=== PATIENT | male | born 1995 | race African-American/Black ===

== ENCOUNTER 2022-08-04 10:58 | Emergency (ER) | payer SELFPAY ==
[2022-08-04 11:01] VITALS: BP 127/82; PULSE 73; RESP 18; TEMP 36.6; O2SAT 99; BMI 25.0
[2022-08-04] MEDS: ondansetron 2 mg/ML SDV 2 mL 4 MG IVP (11:37)
[2022-08-04] MEDS: sodium chloride 0.9% 1,000 ML 999 ML IV (11:37)
[2022-08-04 11:39] LABS: Basophils % 0.4 %; Eosinophils # 0.2 10^3/uL (0.0-0.8); Eosinophils % 2.3 %; Hematocrit 47.1 % (42.0-52.0); Hemoglobin 16.8 g/dL (11.7-16.6); Lymphocytes # 2.5 10^3/uL (0.8-4.8); Lymphocytes % 35.8 %; Mean Corpuscular HGB Conc 35.7 g/dL (30.0-36.0); Mean Corpuscular Hemoglobin 31.8 pg (28.0-34.0); Mean Corpuscular Volume 89.2 fl (80-94); Mean Platelet Volume 10.5 fL (7.4-10.4); Monocytes # 0.4 10^3/uL (0.2-0.9); Monocytes % 6.1 %; Neutrophils # 3.86 10^3/uL (1.8-7.7); Neutrophils % 55.1 %; Nucleated Red Blood Cells % 0 %; Platelet Count 247 10^3/cmm (130-400); Red Blood Count 5.28 10^6/uL (4.1-5.3); Red Cell Distribution Width 11.6 % (12.1-15.1)
--- NOTE | 2022-08-04 11:44 | W.ED.GIBLEED ---
HPI - GI Bleed General: Chief complaint: GI Bleed Stated complaint: n/v/passing blood Time Seen by Provider: 08/04/22 11:08 History of Present Illness: Patient is a 27-year-old male who comes to the ED with nausea and vomiting. Symptoms started approximately 2 days ago. He has had multiple episodes of emesis over the past couple days and has not been able to keep food down. He has been able to keep some p.o. fluids down. This morning he had an episode of emesis which contained a little bit of red blood in it. His stomach feels upset and nauseous, but he also reports some pain in his lower back bilaterally along with some abdominal pain. Abdominal pain is kind and generalized throughout the central part of abdomen. He rates his abdominal pain a 5 out of 10. Denies any fevers, chills, upper respiratory symptoms, dysuria or hematuria. Denies any constipation or diarrhea. Associated symptoms: Reports abdominal pain, nausea and vomiting; Denies chills, fever(s), headache(s) or rash Review of Systems Const: Denies: fever(s), chills or fatigue Eyes: Denies: change in vision or eye discomfort ENMT: Denies: throat pain, odynophagia, nasal discharge or nasal congestion Card: Denies: chest pain, palpitations, edema, swelling of feet/ankles, dyspnea on exertion or orthopnea Resp: Denies: dyspnea, productive cough or non-productive cough GI: Reports: abdominal pain, nausea, vomiting and hematemesis; Denies: diarrhea, constipation or hematochezia : Denies: flank pain, difficulty urinating, dysuria or hematuria Musc: Denies: neck pain, back pain or extremity swelling Skin/Breast: Denies: rash or new lesions Neuro: Denies: headache(s), numbness in extremities or weakness in extremities PFS ED PFSH: Medical History (Updated 08/05/22 @ 07:23 by IGLESIA Nolasco) No pertinent family history Surgical History (Updated 08/05/22 @ 07:23 by IGLESIA Nolasco) No pertinent past surgical history Physical Exam Const: COMMON NORMALS: patient oriented x3 and alert GENERAL APPEARANCE: cooperative and comfortable HENMT: COMMON NORMALS: normocephalic HEAD & SCALP: normocephalic MOUTH: Normal oral and palatal mucosa present THROAT: posterior oropharynx normal and uvula midline Neck/C-Spine: COMMON NORMALS: supple GENERAL: Yes normal visual inspection Resp: COMMON NORMALS: normal respiratory effort, No retractions, No use of accessory muscles and clear to auscultation bilaterally AUSCULTATION: clear to auscultation bilaterally Cardio: COMMON NORMALS: regular rate, regular rhythm, S1 normal heart sound present, S2 normal heart sound present, No gallops present (Cardio), No clicks present (Cardio), No murmurs present (Cardio) and Peripheral pulses 2+ throughout RATE: regular rate RHYTHM: regular rhythm HEART SOUNDS: S1 normal heart sound present and S2 normal heart sound present PERIPHERAL PULSES: Peripheral pulses 2+ throughout GI: COMMON NORMALS: Normal to inspection, nondistended, normoactive bowel sounds present, Soft to palpation and no masses PALPATION: Yes Soft to palpation and Yes Tenderness to palpation present (GI) (Generalized central abdominal and periumbilical tenderness) : COMMON NORMALS: Yes no CVA tenderness BLADDER/KIDNEY EXAM: Yes no CVA tenderness Back/Pelvis: COMMON NORMALS: no CVA tenderness Extremity: COMMON NORMALS: normal to inspection Neuro: COMMON NORMALS: patient oriented x3 SENSORIUM/ORIENTATION: Yes alert GAIT: Yes Normal gait present Skin: GENERAL SKIN EXAM: dry skin Course Vital Signs: Vital signs: Vital Signs Temperature 97.6 F 08/04/22 13:47 Pulse Rate 67 08/04/22 13:47 Respiratory Rate 13 08/04/22 13:47 Blood Pressure 106/68 08/04/22 13:47 Pulse Oximetry 97 08/04/22 13:47 Oxygen Delivery Me thod 08/04/22 13:47 MDM - GI Bleed Medical Decision Making Patient is a 27-year-old male who comes to the ED with nausea and vomiting. Symptoms started approximately 2 days ago. He has had multiple episodes of emesis over the past couple days and has not been able to keep food down. He has been able to keep some p.o. fluids down. This morning he had an episode of emesis which contained a little bit of red blood in it. His stomach feels upset and nauseous, but he also reports some pain in his lower back bilaterally along with some abdominal pain. Abdominal pain is kind and generalized throughout the central part of abdomen. He rates his abdominal pain a 5 out of 10. Denies any fevers, chills, upper respiratory symptoms, dysuria or hematuria. Vital stable. Patient has some mild central abdominal and periumbilical tenderness but the rest of exam is benign. He appears nontoxic in no acute distress. Labs are unremarkable. CT of abdomen pelvis shows no acute findings. Patient symptoms likely due to viral gastroenteritis. He was given IV fluids and Zofran here in the ED and his symptoms improved and he is able to keep p.o. fluids down. He was stable for discharge home and sent home with a prescription for Zofran. Patient does not have a primary care physician so I placed an order with case management for patient to be referred to a PCP for follow-up. Return to ED precautions given. Patient understood and agreed with plan. Lab Data I reviewed the patient's lab results. 08/04/22 11:29 08/04/22 11:29 Radiology Impressions Abdomen/Pelvis CT 08/04/22 11:48 IMPRESSION: 1. No acute abdominal or pelvic abnormalities on this unenhanced study. 2. No GI tract obstruction. Normal appendix. Laboratory Results WBC 7.0 10^3/uL (4.0-10.0) 08/04/22 11: RBC 5.28 10^6/uL (4.1-5.3) 08/04/22 11:29 Hgb 16.8 g/dL (11.7-16.6) H 08/04/22 11:29 Hct 47.1 % (42.0-52.0) 08/04/22 11: MCV 89.2 fl (80-94) 08/04/22 11: MCH 31.8 pg (28.0-34.0) 08/04/22 11:29 MCHC 35.7 g/dL (30.0-36.0) 08/04/22 11: RDW 11.6 % (12.1-15.1) L 08/04/22 11:29 Plt Count 247 10^3/cmm (130-400) 08/04/22 11: MPV 10.5 fL (7.4-10.4) H 08/04/22 11: Neut % (Auto) 55.1 % 08/04/22 11: Lymph % (Auto) 35.8 % 08/04/22 11:29 [place] % (Auto) 6.1 % 08/04/22 11:29 Eos % (Auto) 2.3 % 08/04/22 11:29 Baso % (Auto) 0.4 % 08/04/22 11:29 Neut # (Auto) 3.86 10^3/uL (1.8-7.7) 08/04/22 11:29 Lymph # (Auto) 2.5 10^3/uL (0.8-4.8) 08/04/22 11:29 [place] # (Auto) 0.4 10^3/uL (0.2-0.9) 08/04/22 11:29 Eos # (Auto) 0.2 10^3/uL (0.0-0.8) 08/04/22 11:29 Baso # (Auto) 0.0 10^3/uL (0.0-0.1) 08/04/22 11:29 Nucleated RBC % (auto) 0 % 08/04/22 11:29 Nucleated RBCs # 0.0 /100WBC 08/04/22 11:29 Sodium 138 mmol/L (136-145) 08/04/22 11:29 Potassium 3.7 mmol/L (3.5-5.1) 08/04/22 11:29 Chloride 101 mmol/L (98-107) 08/04/22 11:29 Carbon Dioxide 26 mmol/L (22-29) 08/04/22 11:29 Anion Gap 14.7 (5-19) 08/04/22 11:29 BUN 11 mg/dL (6-20) 08/04/22 11:29 Creatinine 1.0 mg/dL (0.7-1.2) 08/04/22 11:29 GFR Calculation 90.3 mL/min (90-130) 08/04/22 11:29 Glucose 95 mg/dL (65-115) 08/04/22 11:29 Calculated Osmolality 285 mOsm/kg (285-295) 08/04/22 11:29 Calcium 9.1 mg/dL (8.5-10.5) 08/04/22 11:29 Total Bilirubin 0.7 mg/dL (0.15-1.2) 08/04/22 11: AST 16 U/L (0-40) 08/04/22 11:29 ALT 24 U/L (0-41) 08/04/22 11:29 Alkaline Phosphatase 80 U/L (40-130) 08/04/22 11:29 Total Protein 7.7 g/dL (6.6-8.7) 08/04/22 11:29 Albumin 4.6 g/dL (3.5-5.2) 08/04/22 11:29 Globulin 3.1 g/dL (1.3-4.6) 08/04/22 11:29 Lipase 62 U/L (13-60) H 08/04/22 11:29 Urine Color Yellow (Yellow) 08/04/22 11:50 Urine Appearance Clear (CLEAR) 08/04/22 11:50 Urine pH 5 (5-7) 08/04/22 11:50 Ur Specific [place] 1.025 (1.005-1.030) 08/04/22 11:50 Urine Protein Trace (Negative) 08/04/22 11:50 Urine Glucose (UA) Norm (Normal) 08/04/22 11:50 Urine Ketones 1+ (Negative) H 08/04/22 11:50 Urine Blood Neg (Negative) 08/04/22 11:50 Urine Nitrate Negative (Negative) 08/04/22 11:50 Urine Bilirubin Neg (Negative) 08/04/22 11:50 Urine Urobilinogen Neg mg/dL (Negative) 08/04/22 11:50 Ur Leukocyte Esterase Negative (Negative) 08/04/22 11:50 Urine RBC None /hpf (0-2) 08/04/22 11:50 Urine WBC None /hpf (0-5) 08/04/22 11:50 Ur Squamous Epith Cells 0-4 /hpf (0-5) H 08/04/22 11:50 Amorphous Sediment Not Reportable 08/04/22 11:50 Urine Bacteria None /hpf (NONE) 08/04/22 11:50 Urine Mucus 2+ /hpf 08/04/22 11:50 Discharge Plan Discharge Patient Disposition: Home Clinical Impression: Viral gastroenteritis Condition: Stable Prescriptions: New ondansetron 4 mg tablet,disintegrating 4 mg PO Q8H PRN (Reason: nausea and vomiting) Qty: 15 0RF Discharge Orders: Discharge ED (Routine); Ordered 08/04/22 Ordered By: Blaise Cali Discharge Diet: Advance as tolerated and Clear Liquid Discharge Activity: Increase activity as tolerated Activity Restrictions/Additional Instructions: Follow-up with medical provider as directed. Case management should contact you in the next several days to set up an appointment with a primary care physician for follow-up. Take medications as prescribed. Drink plenty fluids and stay hydrated. Return to the ER or your medical provider if condition worsens. Please read and understand discharge instructions. Thank you for choosing [facility] for your healthcare needs today. Please realize this is an emergency room and that we are providing you with a medical screening exam and this may not be complete and all inclusive of all the testing and or work up that you may need to determine your ailment or severity of your illness. It is very important that you follow up as instructed or that you return to the Emergency Department should you have concerns or if your condition changes or worsens in any way. Stand Alone Forms: Work/School Release Coding Level of Care Code ED Rehab Director Occupational Therapist for Hilario Fwmarlys Exam Comprehensive
--- NOTE | 2022-08-04 11:48 | CT_ITS ---
WS: [id number] CT ABDOMEN AND PELVIS NONCONTRAST HISTORY: abdominal pain, n/v, red blood in vomit TECHNIQUE: Imaging performed through the abdomen and pelvis. Coronal and sagittal reformats are submi tted. All CT scans at [facility] use at least one of these dose optimization techniques: auto mated exposure control; mA and/or kV adjustment per patient size (includes targeted exams where dose is matched to clinical indication); or iterative reconstruction. DLP: 480.38 mGy.cm COMPARISON: None available. Lower thorax: Lung bases are clear. Visualized heart is normal. No hiatal hernia. Liver: Normal size liver. No mass or bile duct dilatation. Gallbladder: Normal gallbladder. Pancreas: Normal size and attenuation. Normal pancreatic duct. No pancreatitis or mass. Spleen: Normal. Adrenal glands: Normal. No mass. Right kidney: Normal size kidney with no mass or hydronephrosis. Left kidney: Normal size kidney with no mass or hydronephrosis. Aorta: Normal abdominal aorta, no aneurysm or atherosclerosis. No free fluid, intraperitoneal air or significant lymphadenopathy. GI tract: Minimally distended stomach. No mixed density within the stomach to suggest acute blood pro ducts. No small bowel obstruction or colon obstruction. Normal appendix. Abdominal wall: Negative. No hernia. Pelvis: Normal. Osseous structures: Bilateral pars defects at L5. CT/CT abdomen pelvis wo con [id number] IMPRESSION: 1. No acute abdominal or pelvic abnormalities on this unenhanced study. 2. No GI tract obstruction. Normal appendix.
[2022-08-04 11:59] LABS: Alanine Aminotransferase 24 U/L (0-41); Albumin Level 4.6 g/dL (3.5-5.2); Alkaline Phosphatase 80 U/L (40-130); Anion Gap 14.7 (5-19); Aspartate Amino Transferase 16 U/L (0-40); Blood Urea Nitrogen 11 mg/dL (6-20); Calcium 9.1 mg/dL (8.5-10.5); Carbon Dioxide 26 mmol/L (22-29); Chloride 101 mmol/L (98-107); Globulin 3.1 g/dL (1.3-4.6); Glomerular Filtration Rate 90.3 mL/min (90-130); Glucose 95 mg/dL (65-115); Lipase 62 U/L (13-60); Osmolality Calculated 285 mOsm/kg (285-295); Potassium 3.7 mmol/L (3.5-5.1); Sodium 138 mmol/L (136-145); Total Bilirubin 0.7 mg/dL (0.15-1.2); Total Protein 7.7 g/dL (6.6-8.7)
[2022-08-04 12:20] LABS: Glucose Urine UA Norm (Normal); Protein Urine Trace (Negative); Specific Gravity, Urine 1.025 (1.005-1.030); Urine Appearance Clear (CLEAR); Urine Color Yellow (Yellow); pH Urine 5 (5-7)
[2022-08-04 12:21] LABS: Add Urine Microscopic? YES; Bilirubin Urine Neg (Negative); Blood Urine Neg (Negative); Ketones Urine 1+ (Negative); Leukocyte Esterase Urine Negative (Negative); Nitrate Urine Negative (Negative); Urobilinogen Urine Neg (Negative)
[2022-08-04 12:32] LABS: Mucus Urine 2+ /hpf; Squamous Epithelial Cell Urine 0-4 /hpf (0-5)
[2022-08-04 13:47] VITALS: BP 106/68; PULSE 67; RESP 13; TEMP 36.4; O2SAT 97
--- NOTE | 2022-08-10 11:04 | DCPLANNER ---
manager of photography had message to speak with patient about getting established with a primary care physician. manager of photography unable to speak with patient at this time.
== END 2022-08-04 13:43 | disposition home or self-care (01) ==
PROVIDERS: Emergency Provider Physician Assistant
DX: A08.4 Viral intestinal infection, unspecified (principal)
CPT/HCPCS: 74176; 80053; 81001; 83690; 85025; 96374; 99285; J2405; J7030

== ENCOUNTER → 2023-02-06 12:57 | Outpatient (BNVA) | payer SELFPAY | PROVIDERS: Visit Provider Nurse Practitioner Family | DX: R51.9 Headache, unspecified (principal) | CPT/HCPCS: 87426 ==

== ENCOUNTER 2023-02-11 18:20 | Emergency (ER) | payer SELFPAY ==
[2023-02-11 18:47] VITALS: BP 100/68; PULSE 87; RESP 14; TEMP 37.2; O2SAT 97; BMI 23.0
--- NOTE | 2023-02-11 20:45 | W.ED.HA ---
Documented by User: UDAY Stewart 02/11/23 21:48 HPI - Headache General: Chief Complaint: Headache Stated Complaint: vomiting Time Seen by Provider: 02/11/23 20:44 History of Present Illness: 27-year-old male patient comes in today for complaints of headache. Patient reports headaches on and off for the last 2 months, and occasional episodes of nausea and vomiting with blood in it. Patient was seen on the in the clinic and was given a dose of Toradol. Today patient had nausea with a headache and vomited once noticing some blood. Patient appears nontoxic. Patient appears in mild pain. Patient has a history of mood disorder and prior emesis with blood. Associated symptoms: Reports vomiting; Deny chest pain, fever(s) or rash Review of Systems Const: Denies: fever(s) Card: Denies: chest pain Resp: Denies: dyspnea GI: Reports: vomiting and other (Blood in vomit) : Denies: flank pain Skin/Breast: Denies: rash Neuro: Reports: headache(s) PFS ED PFSH: Medical History (Updated 02/11/23 @ 21:45 by UDAY Stewart) No pertinent family history Surgical History (Updated 08/05/22 @ 07:23 by IGLESIA Nolasco) No pertinent past surgical history Physical Exam Const: COMMON NORMALS: alert HENMT: COMMON NORMALS: atraumatic HEAD & SCALP: atraumatic MOUTH: Normal oral and palatal mucosa present Neck/C-Spine: COMMON NORMALS: full ROM Resp: COMMON NORMALS: normal respiratory effort and clear to auscultation bilaterally AUSCULTATION: clear to auscultation bilaterally Cardio: COMMON NORMALS: regular rate and regular rhythm RATE: regular rate RHYTHM: regular rhythm GI: COMMON NORMALS: non-tender Back/Pelvis: COMMON NORMALS: thoracic and lumbar spine normal to inspection Extremity: COMMON NORMALS: normal to inspection Neuro: SENSORIUM/ORIENTATION: Yes alert Skin: COMMON NORMALS: turgor normal GENERAL SKIN EXAM: turgor normal Course Vital Signs: Vital signs: Vital Signs Temperature 99.0 F 02/11/23 18:47 Pulse Rate 86 02/11/23 22:08 Respiratory Rate 16 02/11/23 22:08 Blood Pressure 94/56 02/11/23 22:08 Pulse Oximetry 96 02/11/23 22:08 Oxygen Delivery Me thod Room Air 02/11/23 21:19 MDM - Headache Medical Decision Making 27-year-old male patient comes in today with complaints of headache and then emesis with blood in it. Patient also expressed concern about blood sugar and numbness in his fingers and feet bilaterally. Patient appears nontoxic. Patient appears in no pain. Respirations are even lungs are clear to auscultation. Patient was given Toradol in the doctor's office on 06 February for his headache and reported some improvement of the headache since then but continues to report a headache today. Vital signs are normal. Differential diagnosis includes but not limited to recurrent migraine, anemia, anxiety about health, diabetes, tarsal tunnel syndrome, carpal tunnel syndrome, planter fasciitis, mood disorder. CBC and CMP were unremarkable. Patient was treated for his headache with 15 mg ketorolac and 10 mg of Reglan with of headache. Recommended pantoprazole 20 mg daily due to emesis and blood in emesis for suspicion of gastritis. Case management was requested to have patient follow-up with surgeon for further evaluation with EGD. Patient reported understanding of care plan and need for follow-up or return to the ER. Lab Data 02/11/23 21:05 02/11/23 21:05 Laboratory Results WBC 9.5 10^3/uL (4.0-10.0) 02/11/23 21:05 RBC 4.82 10^6/uL (4.1-5.3) 02/11/23 21:05 Hgb 15.4 g/dL (11.7-16.6) 02/11/23 21:05 Hct 45.8 % (42.0-52.0) 02/11/23 21:05 MCV 95.0 fl (80-94) H 02/11/23 21:05 MCH 32.0 pg (28.0-34.0) 02/11/23 21:05 MCHC 33.6 g/dL (30.0-36.0) 02/11/23 21:05 RDW 12.2 % (12.1-15.1) 02/11/23 21:05 Plt Count 223 10^3/cmm (130-400) 02/11/23 21:05 MPV 10.3 fL (7.4-10.4) 02/11/23 21:05 Neut % (Auto) 63.4 % 02/11/23 21:05 Lymph % (Auto) 27.4 % 02/11/23 21:05 [place] % (Auto) 6.8 % 02/11/23 21:05 Eos % (Auto) 1.5 % 02/11/23 21:05 Baso % (Auto) 0.6 % 02/11/23 21:05 Neut # (Auto) 6.01 10^3/uL (1.8-7.7) 02/11/23 21:05 Lymph # (Auto) 2.6 10^3/uL (0.8-4.8) 02/11/23 21:05 [place] # (Auto) 0.6 10^3/uL (0.2-0.9) 02/11/23 21:05 Eos # (Auto) 0.1 10^3/uL (0.0-0.8) 02/11/23 21:05 Baso # (Auto) 0.1 10^3/uL (0.0-0.1) 02/11/23 21:05 Nucleated RBC % (auto) 0 % 02/11/23 21:05 Nucleated RBCs # 0.0 /100WBC 02/11/23 21:05 Sodium 142 mmol/L (136-145) 02/11/23 21:05 Potassium 4.2 mmol/L (3.5-5.1) 02/11/23 21:05 Chloride 103 mmol/L (98-107) 02/11/23 21:05 Carbon Dioxide 27 mmol/L (22-29) 02/11/23 21:05 Anion Gap 16.2 (5-19) 02/11/23 21:05 BUN 7 mg/dL (6-20) 02/11/23 21:05 Creatinine 1.1 mg/dL (0.7-1.2) 02/11/23 21:05 GFR Calculation 80.9 mL/min (90-130) L 02/11/23 21:05 Glucose 77 mg/dL (65-115) 02/11/23 21:05 Calculated Osmolality 291 mOsm/kg (285-295) 02/11/23 21:05 Calcium 8.9 mg/dL (8.5-10.5) 02/11/23 21:05 Total Bilirubin 0.5 mg/dL (0.15-1.2) 02/11/23 21:05 AST 16 U/L (0-40) 02/11/23 21:05 ALT 15 U/L (0-41) 02/11/23 21:05 Alkaline Phosphatase 59 U/L (40-130) 02/11/23 21:05 Total Protein 6.9 g/dL (6.6-8.7) 02/11/23 21:05 Albumin 4.3 g/dL (3.5-5.2) 02/11/23 21:05 Globulin 2.6 g/dL (1.3-4.6) 02/11/23 21:05 Discharge Plan Discharge Patient Disposition: Home Clinical Impression: Gastritis Qualifiers: Gastritis type: unspecified gastritis Chronicity: unspecified Gastritis bleeding: presence of bleeding unspecified Qualified Code(s): K29.70 - Gastritis, unspecified, without bleeding Migraine Qualifiers: Migraine type: unspecified Status migrainosus presence: without status migrainosus Intractability: not intractable Qualified Code(s): G43.909 - Migraine, unspecified, not intractable, without status migrainosus Condition: Stable Prescriptions: New pantoprazole 20 mg tablet,delayed release (DR/EC) 20 mg PO DAILY Qty: 14 0RF No Action ondansetron HCl 4 mg tablet 4 mg PO Q8H PRN (Reason: nausea and vomiting) Qty: 10 0RF Discharge Orders: Discharge ED (Routine); Ordered 02/11/23 Ordered By: Elijah Shepherd Discharge Diet: Usual diet Discharge Activity: Increase activity as tolerated Patient Instructions: Gastritis (ED), Migraine Headache (ED) Activity Restrictions/Additional Instructions: Drink plenty of water. Use acetaminophen as needed for headache or pain. Avoid ibuprofen or naproxen as this may irritate the stomach lining and increased bleeding. Take pantoprazole 20 mg daily for the next 2 weeks for concern of irritation of the stomach lining. Case management will contact you regarding follow-up appointment with surgeon for further evaluation of blood in vomit and possible endoscopy procedure to look at the stomach lining and esophagus. Follow-up with primary care about prophylaxis treatment for migraine headaches. Return to ER for new concerns. Stand Alone Forms: Work/School Release Coding Level of Care Code ED Forming Machine Tender for Chg Fwd Documented by User: Joseph Blaise Joey, DO 02/11/23 22:15 HPI - Headache General: Chief Complaint: Headache Stated Complaint: vomiting Time Seen by Provider: 02/11/23 20:44 PFSH ED PFSH: Medical History (Updated 02/11/23 @ 21:45 by UDAY Stewart) No pertinent family history Surgical History (Updated 08/05/22 @ 07:23 by IGLESIA Nolasco) No pertinent past surgical history Course Vital Signs: Vital signs: Vital Signs Temperature 99.0 F 02/11/23 18:47 Pulse Rate 86 02/11/23 22:08 Respiratory Rate 16 02/11/23 22:08 Blood Pressure 94/56 02/11/23 22:08 Pulse Oximetry 96 02/11/23 22:08 Oxygen Delivery Me thod Room Air 02/11/23 21:19 MDM - Headache Medical Decision Making 27-year-old male patient comes in today with complaints of headache and then emesis with blood in it. Patient also expressed concern about blood sugar and numbness in his fingers and feet bilaterally. Patient appears nontoxic. Patient appears in no pain. Respirations are even lungs are clear to auscultation. Patient was given Toradol in the doctor's office on 06 February for his headache and reported some improvement of the headache since then but continues to report a headache today. Vital signs are normal. Differential diagnosis includes but not limited to recurrent migraine, anemia, anxiety about health, diabetes, tarsal tunnel syndrome, carpal tunnel syndrome, planter fasciitis, mood disorder. CBC and CMP were unremarkable. Patient was treated for his headache with 15 mg ketorolac and 10 mg of Reglan with of headache. Recommended pantoprazole 20 mg daily due to emesis and blood in emesis for suspicion of gastritis. Case management was requested to have patient follow-up with surgeon for further evaluation with EGD. Patient reported understanding of care plan and need for follow-up or return to the ER. This patient was originally seen by UDAY Shah.? I agree with his history, evaluation, and treatment. Lab Data 02/11/23 21:05 02/11/23 21:05 Laboratory Results WBC 9.5 10^3/uL (4.0-10.0) 02/11/23 21:05 RBC 4.82 10^6/uL (4.1-5.3) 02/11/23 21:05 Hgb 15.4 g/dL (11.7-16.6) 02/11/23 21:05 Hct 45.8 % (42.0-52.0) 02/11/23 21:05 MCV 95.0 fl (80-94) H 02/11/23 21:05 MCH 32.0 pg (28.0-34.0) 02/11/23 21:05 MCHC 33.6 g/dL (30.0-36.0) 02/11/23 21:05 RDW 12.2 % (12.1-15.1) 02/11/23 21:05 Plt Count 223 10^3/cmm (130-400) 02/11/23 21:05 MPV 10.3 fL (7.4-10.4) 02/11/23 21:05 Neut % (Auto) 63.4 % 02/11/23 21:05 Lymph % (Auto) 27.4 % 02/11/23 21:05 [place] % (Auto) 6.8 % 02/11/23 21:05 Eos % (Auto) 1.5 % 02/11/23 21:05 Baso % (Auto) 0.6 % 02/11/23 21:05 Neut # (Auto) 6.01 10^3/uL (1.8-7.7) 02/11/23 21:05 Lymph # (Auto) 2.6 10^3/uL (0.8-4.8) 02/11/23 21:05 [place] # (Auto) 0.6 10^3/uL (0.2-0.9) 02/11/23 21:05 Eos # (Auto) 0.1 10^3/uL (0.0-0.8) 02/11/23 21:05 Baso # (Auto) 0.1 10^3/uL (0.0-0.1) 02/11/23 21:05 Nucleated RBC % (auto) 0 % 02/11/23 21:05 Nucleated RBCs # 0.0 /100WBC 02/11/23 21:05 Sodium 142 mmol/L (136-145) 02/11/23 21:05 Potassium 4.2 mmol/L (3.5-5.1) 02/11/23 21:05 Chloride 103 mmol/L (98-107) 02/11/23 21:05 Carbon Dioxide 27 mmol/L (22-29) 02/11/23 21:05 Anion Gap 16.2 (5-19) 02/11/23 21:05 BUN 7 mg/dL (6-20) 02/11/23 21:05 Creatinine 1.1 mg/dL (0.7-1.2) 02/11/23 21:05 GFR Calculation 80.9 mL/min (90-130) L 02/11/23 21:05 Glucose 77 mg/dL (65-115) 02/11/23 21:05 Calculated Osmolality 291 mOsm/kg (285-295) 02/11/23 21:05 Calcium 8.9 mg/dL (8.5-10.5) 02/11/23 21:05 Total Bilirubin 0.5 mg/dL (0.15-1.2) 02/11/23 21:05 AST 16 U/L (0-40) 02/11/23 21:05 ALT 15 U/L (0-41) 02/11/23 21:05 Alkaline Phosphatase 59 U/L (40-130) 02/11/23 21:05 Total Protein 6.9 g/dL (6.6-8.7) 02/11/23 21:05 Albumin 4.3 g/dL (3.5-5.2) 02/11/23 21:05 Globulin 2.6 g/dL (1.3-4.6) 02/11/23 21:05 Discharge Plan Discharge Patient Disposition: Home Clinical Impression: Gastritis Qualifiers: Gastritis type: unspecified gastritis Chronicity: unspecified Gastritis bleeding: presence of bleeding unspecified Qualified Code(s): K29.70 - Gastritis, unspecified, without bleeding Migraine Qualifiers: Migraine type: unspecified Status migrainosus presence: without status migrainosus Intractability: not intractable Qualified Code(s): G43.909 - Migraine, unspecified, not intractable, without status migrainosus Condition: Stable Prescriptions: New pantoprazole 20 mg tablet,delayed release (DR/EC) 20 mg PO DAILY Qty: 14 0RF No Action ondansetron HCl 4 mg tablet 4 mg PO Q8H PRN (Reason: nausea and vomiting) Qty: 10 0RF Discharge Orders: Discharge ED (Routine); Ordered 02/11/23 Ordered By: Elijah Shepherd Discharge Diet: Usual diet Discharge Activity: Increase activity as tolerated Patient Instructions: Gastritis (ED), Migraine Headache (ED) Activity Restrictions/Additional Instructions: Drink plenty of water. Use acetaminophen as needed for headache or pain. Avoid ibuprofen or naproxen as this may irritate the stomach lining and increased bleeding. Take pantoprazole 20 mg daily for the next 2 weeks for concern of irritation of the stomach lining. Case management will contact you regarding follow-up appointment with surgeon for further evaluation of blood in vomit and possible endoscopy procedure to look at the stomach lining and esophagus. Follow-up with primary care about prophylaxis treatment for migraine headaches. Return to ER for new concerns. Stand Alone Forms: Work/School Release Coding Level of Care Code ED Forming Machine Tender for Hilario Velasquez
[2023-02-11 21:19] VITALS: BP 107/67; PULSE 65; RESP 16; O2SAT 97
[2023-02-11] MEDS: metoclopramide 5 mg/mL SDV 2 mL 10 MG IVP (21:26)
[2023-02-11] MEDS: ketorolac 30 mg/mL INJ 15 MG IVP (21:27)
[2023-02-11 21:30] LABS: Alanine Aminotransferase 15 U/L (0-41); Albumin Level 4.3 g/dL (3.5-5.2); Alkaline Phosphatase 59 U/L (40-130); Anion Gap 16.2 (5-19); Aspartate Amino Transferase 16 U/L (0-40); Basophils # 0.1 10^3/uL (0.0-0.1); Basophils % 0.6 %; Blood Urea Nitrogen 7 mg/dL (6-20); Calcium 8.9 mg/dL (8.5-10.5); Carbon Dioxide 27 mmol/L (22-29); Chloride 103 mmol/L (98-107); Eosinophils # 0.1 10^3/uL (0.0-0.8); Eosinophils % 1.5 %; Globulin 2.6 g/dL (1.3-4.6); Glomerular Filtration Rate 80.9 mL/min (90-130); Glucose 77 mg/dL (65-115); Hematocrit 45.8 % (42.0-52.0); Hemoglobin 15.4 g/dL (11.7-16.6); Lymphocytes # 2.6 10^3/uL (0.8-4.8); Lymphocytes % 27.4 %; Mean Corpuscular HGB Conc 33.6 g/dL (30.0-36.0); Mean Platelet Volume 10.3 fL (7.4-10.4); Monocytes # 0.6 10^3/uL (0.2-0.9); Monocytes % 6.8 %; Neutrophils # 6.01 10^3/uL (1.8-7.7); Neutrophils % 63.4 %; Nucleated Red Blood Cells % 0 %; Osmolality Calculated 291 mOsm/kg (285-295); Platelet Count 223 10^3/cmm (130-400); Potassium 4.2 mmol/L (3.5-5.1); Red Blood Count 4.82 10^6/uL (4.1-5.3); Red Cell Distribution Width 12.2 % (12.1-15.1); Sodium 142 mmol/L (136-145); Total Bilirubin 0.5 mg/dL (0.15-1.2); Total Protein 6.9 g/dL (6.6-8.7); White Blood Count 9.5 10^3/uL (4.0-10.0)
[2023-02-11 22:08] VITALS: BP 94/56; PULSE 86; RESP 16; O2SAT 96
--- NOTE | 2023-02-12 08:14 | DCPLANNER ---
Addendum entered by Silva Walker 02/21/23 09:54: Patient had a follow up appointment scheduled with general surgery - patient did attend appointment Original Note: health safety manager had message to schedule a follow up appointment for patient with general surgery. health safety manager sent patients information to the front office staff at general surgery. Patients information will be printed and reviewed. Clinic will call patient with appointment information.
== END 2023-02-11 22:04 | disposition home or self-care (01) ==
PROVIDERS: Emergency Provider Nurse Practitioner Family
DX: K29.70 Gastritis, unspecified, without bleeding (principal); G43.909 Migraine, unspecified, not intractable, without status migrainosus
CPT/HCPCS: 36415; 80053; 85025; 96374; 96375; 99284; J1885; J2765

== ENCOUNTER → 2023-02-14 11:35 | Outpatient (BNVA) | payer OTHER, SELFPAY | PROVIDERS: PCP Family Medicine; Visit Provider Family Medicine | DX: F31.9 Bipolar disorder, unspecified (principal) | CPT/HCPCS: 80061; 84439; 84443; 86900 ==

== ENCOUNTER → 2023-02-19 13:07 | Outpatient (BNVA) | payer OTHER, SELFPAY | PROVIDERS: PCP Family Medicine; Visit Provider Family Medicine | DX: F31.9 Bipolar disorder, unspecified (principal) | CPT/HCPCS: 86900 ==

== ENCOUNTER 2023-04-29 19:33 | Emergency (ER) | payer OTHER, SELFPAY ==
[2023-04-29 19:51] LABS: Basophils % 0.3 %; Eosinophils # 0.1 10^3/uL (0.0-0.8); Eosinophils % 0.7 %; Hematocrit 49.9 % (37-53); Lymphocytes # 2.4 10^3/uL (0.8-4.8); Lymphocytes % 24.7 %; Mean Corpuscular HGB Conc 33.5 g/dL (30-55); Mean Corpuscular Volume 92.8 fl (82-101); Mean Platelet Volume 10.1 fL (7.4-10.4); Monocytes # 0.5 10^3/uL (0.2-0.9); Monocytes % 5.2 %; Neutrophils # 6.74 10^3/uL (1.8-7.7); Neutrophils % 68.7 %; Nucleated Red Blood Cells % 0 %; Platelet Count 254 10^3/cmm (157-399); Red Blood Count 5.38 10^6/uL (3.85-5.65); Red Cell Distribution Width 11.8 % (12.1-15.1); White Blood Count 9.82 10^3/uL (3.29-11.43)
[2023-04-29 19:55] VITALS: BP 118/72; PULSE 74; RESP 16; TEMP 36.8; O2SAT 99; BMI 25.0
[2023-04-29 20:26] LABS: Alanine Aminotransferase 16 U/L (0-41); Albumin Level 4.8 g/dL (3.5-5.2); Alkaline Phosphatase 66 U/L (40-130); Anion Gap 11.5 (5-19); Aspartate Amino Transferase 14 U/L (0-40); Blood Urea Nitrogen 7 mg/dL (6-20); Calcium 9.3 mg/dL (8.5-10.5); Carbon Dioxide 30 mmol/L (22-29); Chloride 96 mmol/L (98-107); Globulin 3.2 g/dL (1.3-4.6); Glomerular Filtration Rate 80.9 mL/min (90-130); Glucose 89 mg/dL (65-115); Lipase 43 U/L (13-60); Osmolality Calculated 275 mOsm/kg (285-295); Potassium 3.5 mmol/L (3.5-5.1); Sodium 134 mmol/L (136-145); Total Bilirubin 0.9 mg/dL (0.15-1.2)
--- NOTE | 2023-04-29 20:58 | W.ED.ABDPA2 ---
HPI - Abdominal Pain General: Chief Complaint: Abdominal Pain Stated Complaint: ABD Pain Time Seen by Provider: 04/29/23 20:30 Source: patient Mode of arrival: ambulatory Limitations: no limitations History of Present Illness: Patient is a 27-year-old male who presents the emergency room with abdominal pain and hematemesis. Patient reports symptoms started earlier this morning and has had a couple episodes since with the last episode around 5 PM. Reports bright red hematemesis. Patient had a previous ER visit for similar symptoms and was referred for an EGD; patient states he is unable to afford EGD procedure at this time. Patient was given a PPI and antiemetic which she stopped taking approximately 2 weeks ago. Patient reports pain 3/10 on pain scale And some nausea. reports he is able to keep solids and liquids down. Patient denies any hematochezia, shortness of breath, chest pain, fever, chills. No other complaints at this time. MD elicited complaint: abdominal pain Severity: mild Pain scale (0-10): 3 Associated Symptoms: Reports hematemesis and nausea; Denies chills, diarrhea, dysuria and fever(s) Review of Systems Const: Denies: fever(s), chills, body aches or change in appetite Eyes: Denies: blurry vision or eye discomfort ENMT: Denies: throat pain or dental pain Card: Denies: chest pain Resp: Denies: dyspnea GI: Reports: abdominal pain, nausea and hematemesis; Denies: diarrhea : Denies: dysuria Musc: Denies: neck pain or back pain Skin/Breast: Denies: rash Neuro: Denies: headache(s) Psych: Denies: depression Wil/Lymph: Denies: easy bruising All/Imm: Denies: urticaria PFSH ED PFSH: Medical History No pertinent family history Psychiatric care Surgical History No pertinent past surgical history Family History Mother Cancer Uterus Sister Cancer liver Other Diabetes Denies family history of CAD (coronary artery disease) Clotting disorder Dementia Hyperlipidemia Psychiatric illness Chronic kidney disease (CKD) Suicide Anesthesia complication Bleeding disorder Family history of premature coronary artery disease Lung disease Hypertension Stroke Social History Smoking and tobacco/nicotine status: current every day tobacco/nicotine user e-cigarettes E-Cigarette Details: vaporizer device and with nicotine Second hand smoke exposure: No Alcohol intake: current Alcohol intake frequency: holidays/special occasions only Substance/Drug Use: current Substance/Drug use frequency: few times a week Adopted: No Caregiver/support person: No Lives independently: Yes Housing: House service: No Current occupational status: employed Current occupation: At home care Current occupational exposures/hazards: No Pets and animals: No Do you think of yourself as: Straight/Heterosexual Current gender identity: Male Special linsey needs: No Physical Exam Const: COMMON NORMALS: no acute distress, patient oriented x3 and healthy appearing HENMT: COMMON NORMALS: normocephalic and atraumatic HEAD & SCALP: normocephalic and atraumatic Eye: COMMON NORMALS: Equal, round and reactive pupils present and EOMs intact bilaterally PUPIL: Yes Equal, round and reactive pupils present Neck/C-Spine: COMMON NORMALS: full ROM and supple Chest: COMMONS NORMALS: normal inspection of the chest and normal palpation of entire chest wall Resp: COMMON NORMALS: normal respiratory effort, No retractions, No use of accessory muscles and clear to auscultation bilaterally AUSCULTATION: clear to auscultation bilaterally Cardio: COMMON NORMALS: regular rate, regular rhythm and No murmurs present (Cardio) RATE: regular rate RHYTHM: regular rhythm GI: COMMON NORMALS: Normal to inspection, nondistended, normoactive bowel sounds present, Soft to palpation and no masses PALPATION: Yes Soft to palpation and Yes Tenderness to palpation present (GI) Extremity: COMMON NORMALS: normal to inspection and full ROM Neuro: COMMON NORMALS: patient oriented x3, moves all extremities and no focal motor deficits Psych: COMMON NORMALS: mental status grossly normal, Normal thought process present and cooperative MOOD & AFFECT: Yes Flat affect present THOUGHT PROCESS: Normal thought process present Skin: COMMON NORMALS: no rashes or lesions noted and no wounds GENERAL SKIN EXAM: no rashes or lesions noted Course Vital Signs: Vital signs: Vital Signs Temperature 98.2 F 04/29/23 19:55 Pulse Rate 71 04/29/23 21:38 Respiratory Rate 14 04/29/23 21:38 Blood Pressure 109/73 04/29/23 21:38 Pulse Oximetry 99 04/29/23 21:38 Oxygen Delivery Me thod Room Air 04/29/23 21:00 MDM - Abdominal Pain Medical Decision Making patient presents here with hematemesis he has been well-appearing here he is got no abdominal tenderness no vomiting here no signs of large amount of bleeding his hemoglobin is normal we will start him back on Protonix and Zofran he is to follow-up with surgery. Medical Records I reviewed the patient's medical records. Lab Data I reviewed the patient's lab results. 04/29/23 19:44 04/29/23 19:44 Labs/Radiology: Laboratory Results WBC 9.82 10^3/uL (3.29-11.43) 04/29/23 19:44 RBC 5.38 10^6/uL (3.85-5.65) 04/29/23 19:44 Hgb 16.70 g/dL (11.27-16.99) 04/29/23 19:44 Hct 49.9 % (37-53) 04/29/23 19:44 MCV 92.8 fl (82-101) 04/29/23 19:44 MCH 31.0 pg (27-33) 04/29/23 19:44 MCHC 33.5 g/dL (30-55) 04/29/23 19:44 RDW 11.8 % (12.1-15.1) L 04/29/23 19:44 Plt Count 254 10^3/cmm (157-399) 04/29/23 19:44 MPV 10.1 fL (7.4-10.4) 04/29/23 19:44 Neut % (Auto) 68.7 % 04/29/23 19:44 Lymph % (Auto) 24.7 % 04/29/23 19:44 [place] % (Auto) 5.2 % 04/29/23 19:44 Eos % (Auto) 0.7 % 04/29/23 19:44 Baso % (Auto) 0.3 % 04/29/23 19:44 Neut # (Auto) 6.74 10^3/uL (1.8-7.7) 04/29/23 19:44 Lymph # (Auto) 2.4 10^3/uL (0.8-4.8) 04/29/23 19:44 [place] # (Auto) 0.5 10^3/uL (0.2-0.9) 04/29/23 19:44 Eos # (Auto) 0.1 10^3/uL (0.0-0.8) 04/29/23 19:44 Baso # (Auto) 0.0 10^3/uL (0.0-0.1) 04/29/23 19:44 Nucleated RBC % (auto) 0 % 04/29/23 19:44 Nucleated RBCs # 0.0 /100WBC 04/29/23 19:44 Sodium 134 mmol/L (136-145) L 04/29/23 19:44 Potassium 3.5 mmol/L (3.5-5.1) 04/29/23 19:44 Chloride 96 mmol/L (98-107) L 04/29/23 19:44 Carbon Dioxide 30 mmol/L (22-29) H 04/29/23 19:44 Anion Gap 11.5 (5-19) 04/29/23 19:44 BUN 7 mg/dL (6-20) 04/29/23 19:44 Creatinine 1.1 mg/dL (0.7-1.2) 04/29/23 19:44 GFR Calculation 80.9 mL/min (90-130) L 04/29/23 19:44 Glucose 89 mg/dL (65-115) 04/29/23 19:44 Calculated Osmolality 275 mOsm/kg (285-295) L 04/29/23 19:44 Calcium 9.3 mg/dL (8.5-10.5) 04/29/23 19:44 Total Bilirubin 0.9 mg/dL (0.15-1.2) 04/29/23 19:44 AST 14 U/L (0-40) 04/29/23 19:44 ALT 16 U/L (0-41) 04/29/23 19:44 Alkaline Phosphatase 66 U/L (40-130) 04/29/23 19:44 Total Protein 8.0 g/dL (6.6-8.7) 04/29/23 19:44 Albumin 4.8 g/dL (3.5-5.2) 04/29/23 19:44 Globulin 3.2 g/dL (1.3-4.6) 04/29/23 19:44 Lipase 43 U/L (13-60) 04/29/23 19:44 No radiology studies performed this visit Discharge Plan Discharge Patient Disposition: Home Clinical Impression: Hematemesis Condition: Stable Prescriptions: New Protonix 40 mg tablet,delayed release (DR/EC) 40 mg PO DAILY Qty: 60 0RF ondansetron 4 mg tablet,disintegrating 4 mg PO Q6H PRN (Reason: nausea and vomiting) Qty: 14 0RF No Action pantoprazole 40 mg tablet,delayed release (DR/EC) 40 mg PO DAILY PRN aripiprazole [Abilify] 15 mg tablet 15 mg PO DAILY Qty: 30 1RF ondansetron HCl 4 mg tablet 4 mg PO Q8H Discharge Orders: Discharge ED (Routine); Ordered 04/29/23 Ordered By: George Sanders Referrals: Armaan Womack DO [Physician] - 1-3 days Ronny Alexander MD [Primary Care Provider] - 1-3 days Discharge Diet: Advance as tolerated Discharge Activity: Resume usual activity Patient Instructions: Hematemesis (ED) Coding Level of Care Code ED Online Advertising Analyst for Hilario Velasquez
[2023-04-29 21:00] VITALS: BP 122/87; PULSE 71; RESP 14; O2SAT 98
[2023-04-29] MEDS: ondansetron 2 mg/ML SDV 2 mL 4 MG IVP (21:18)
[2023-04-29] MEDS: pantoprazole 40 mg SDV 80 MG IVP (21:18)
[2023-04-29 21:38] VITALS: BP 109/73; PULSE 71; RESP 14; O2SAT 99
--- NOTE | 2023-04-30 11:26 | PC.SOCIAL ---
General Surgery Referral Referral to clinic at this time. Clinic to contact patient with appt date/time.
== END 2023-04-29 21:40 | disposition home or self-care (01) ==
PROVIDERS: Emergency Provider Emergency Medicine; PCP Family Medicine
DX: K92.0 Hematemesis (principal); F17.290 Nicotine dependence, other tobacco product, uncomplicated
CPT/HCPCS: 36415; 80053; 83690; 85025; 96374; 96375; 99284; C9113; J2405

== ENCOUNTER → 2023-05-29 10:52 | Outpatient (BNVA) | payer OTHER, SELFPAY | PROVIDERS: PCP Family Medicine; Visit Provider Nurse Practitioner Psychiatric/Mental Health | DX: Z79.899 Other long term (current) drug therapy (principal) | CPT/HCPCS: 83036 ==

== ENCOUNTER → 2023-07-14 12:48 | Outpatient (BNVA) | payer OTHER, SELFPAY | PROVIDERS: PCP Family Medicine; Visit Provider Nurse Practitioner Family | DX: J02.9 Acute pharyngitis, unspecified (principal) | CPT/HCPCS: 87400; 87426 ==

== ENCOUNTER → 2024-02-06 13:47 | Outpatient (BNVA) | payer OTHER, SELFPAY | PROVIDERS: PCP Family Medicine; Visit Provider Registered Nurse Neonatal Intensive Care | DX: R11.2 Nausea with vomiting, unspecified (principal); R19.7 Diarrhea, unspecified | CPT/HCPCS: 87400; 87426 ==

== ENCOUNTER → 2024-03-15 15:55 | Outpatient (BNVA) | payer OTHER, SELFPAY | PROVIDERS: PCP Family Medicine; Visit Provider Emergency Medicine | DX: R05.9 Cough, unspecified (principal) | CPT/HCPCS: 87426 ==

== ENCOUNTER → 2024-09-10 10:32 | Outpatient (BNVA) | payer OTHER, SELFPAY | PROVIDERS: PCP Family Medicine; Visit Provider Family Medicine | DX: R52 Pain, unspecified (principal) | CPT/HCPCS: 87400 ==

== ENCOUNTER → 2024-09-11 11:15 | Outpatient (BNVA) | payer OTHER, SELFPAY | PROVIDERS: PCP Family Medicine; Visit Provider Emergency Medicine | DX: B34.9 Viral infection, unspecified (principal) | CPT/HCPCS: 87426 ==

== ENCOUNTER → 2024-11-19 11:10 | Outpatient (BNVA) | payer OTHER, SELFPAY | PROVIDERS: PCP Family Medicine; Visit Provider Nurse Practitioner Psychiatric/Mental Health | DX: Z79.899 Other long term (current) drug therapy (principal) | CPT/HCPCS: 80053; 80061; 83036 ==

== ENCOUNTER 2025-04-06 09:11 | Emergency (ER) | payer OTHER, SELFPAY ==
--- OUTSIDE RECORDS SUMMARY | 2019-04-21 10:00 | XMS_ITS | Continuity of Care Document ---
Author Organization [facility] Address [address] [id number] [address] Phone Care Team Providers Care Social Work Program Coordinator Name Role Phone Elijah Joe DDS Unavailable Unavailable Allergies, Adverse Reactions, Alerts Substance Reaction Status Criticality PENICILLIN Active No Information Medications Medication Instructions Dosage Effective Dates (start - stop) Status Comments [place] 5 mg-325 mg tablet take 1 tablet by oral route every 4- 6 hours as needed for pain - Active Procedures Procedure Date Limited Oral Evaluation Problem Focused Intraoral Periapical First Film Treatment Plan Complete Extraction, Erupted Tooth Or Exposed Sima t (Elevati Limited oral eval, x-ray & 1st extractio n EDR Approval Note Advance Directives Directive Yes / No Effective Date File Name No Information Encounters Encounter Description Practice Location Reason(s) For Visit Diagnoses Date Provider Providers Copied on Encounter [facility], [id number], [id number], [place] tel:[phone] Encounter for dental exam and cleaning w/o abnormal findings Tatyana Nava. [address], [place], [id number], [place]. tel:[phone] Referring Provider: Eliajh Astorga, [address] [place], [address]. tel:[phone] Family History Family Member Type Diagnosis Age At Onset No Information Payers Payer name Insurance type Covered alliance party ID Authoriza tion(s) No Information Social History Type Description Quantity Date Captured Comments Alcohol Use Details No Caffeine Use Details Unknown Tobacco Use Status Occasional cigarette smoker Smoking Status Heavy tobacco smoker Smoking Tobacco Use Details Cigarette: No Details Available Cigarette: 1 Packs per day Sex Male Sexual Orientation Heterosexual Gender Identity Male Vital Signs Date / Time: Height Weight BMI Pulse Rate Blood Pressure Temperature Respiratory Rate Body Surface Area Head Circumference Head Circ. Percentile Wt./[place]ris. Percentile BMI percentile Pulse Ox Inhaled Ox 4:01 PM 121/74 mm[Hg] Chief Complaint And Reason For Visit No Information Reason For Referral Reason For Referral No Information Plan Of Treatment Date Type Action Status Goal Tobacco cessation counseling completed History Of Present Illness Encounter Date Complaint History Of Prese nt Illness No Information Functional Status Date Functional Assessmen t No Information Instructions Date Instruction Additional Infor mation No Information Assessments Type Assessment Date No Information Patient Care Teams Name Effective Dates (start - stop) Status Members No Information
[2025-04-06 09:16] VITALS: BP 124/85; PULSE 76; RESP 16; TEMP 36.9; O2SAT 98; BMI 33.6
--- NOTE | 2025-04-06 09:17 | XR_ITS ---
WS: [id number] Exam: XR chest 1V portable [id number] Date/Time of Exam: 04/06/2025 9:33 AM Reason For Exam: chest pain No priors. The lungs are fully inflated and clear. Normal cardiomediastinal silhouette and regional bony structures. XR/XR chest 1V portable [id number] IMPRESSION: 1. Negative chest.
--- NOTE | 2025-04-06 09:17 | ECG_ITS ---
[employer] [facility] Ecomsual Test Date: 2025-04-06 Pat Name: Blaise Oneil Department: Room: Gender: Male Talent Director: : 1995 Requested By: Simba Alves Order Number: [id number] Pratik MD: Olya Talley M.D. Measurements Intervals [place] Rate: 74 P: 12 UT: 127 QRS: 66 QRSD: 93 T: 18 QT: 351 QTc: 392 Interpretive Statements SINUS RHYTHM ST ELEVATION, PROBABLY EARLY REPOLARIZATION [ST ELEVATION WITH NORMALLY INFLECTED T-WAVE] No previous ECG available for comparison Electronically Signed On 04-06-2025 20:21:09 CDT by Olya Talley M.D. [email or web address]
--- NOTE | 2025-04-06 09:21 | ED_ITS ---
HPI - Chest Pain 2 General: Chief Complaint: Chest Pain Stated Complaint: chest pain Time Seen by Provider: 04/06/25 09:14 History of Present Illness: 29-year-old male presents emergency room complaining of chest discomfort worse when he takes a deep breath no fever sweats or chills. He was given ceftriaxone and Decadron yesterday for swelling in his lips they thought there might be an infection there. He has not yet started the Bactrim he was prescribed yesterday. He is not currently having any chest pain is reproducible with deep inspiration consistently Associated symptoms: Deny abdominal pain, dyspnea or fever(s) Related Data Previous Rx's ?Medication ?Instructions ?Recorded cetirizine 10 mg tablet (Zyrtec) 10 mg PO DAILY #90 ta bs 05/29/24 sulfamethoxazole 800 1 tab PO BID 10 days #20 tab s 04/05/25 mg-trimethoprim 160 mg tablet diclofenac sodium 75 mg 75 mg PO Q12H PRN pain #20 t abs 04/06/25 tablet,delayed release Allergies Allergy/AdvReac Type Severity Reaction Status Date / Time bee venom protein (honey bee) Allergy Intermediate swelling Verified 04/05/25 18:53 Penicillins Allergy Unknown unknown Verified 04/05/25 18:53 pollen extracts Allergy Unknown ALGY-Conges Verified 04/05/25 18:53 cate Review of Systems 2 Const: Denies: fever(s) or chills Card: Reports: chest pain Resp: Denies: dyspnea GI: Denies: abdominal pain : Denies: dysuria, urinary frequency or urinary urgency Musc: Denies: neck pain or back pain Skin/Breast: Denies: rash PFSH ED 2 PFSH: Medical History Other schizophrenia Nicotine dependence due to vaping tobacco product Psychiatric care No pertinent family history Surgical History No pertinent past surgical history Family History Mother Cancer Uterus Sister Cancer liver Other Diabetes Other schizophrenia Denies family history of CAD (coronary artery disease) Clotting disorder Dementia Hyperlipidemia Psychiatric illness Chronic kidney disease (CKD) Suicide Anesthesia complication Bleeding disorder Family history of premature coronary artery disease Lung disease Hypertension Stroke Social History Smoking and tobacco/nicotine status: current every day tobacco/nicotine user e- cigarettes E-Cigarette Details: vaporizer device and with nicotine Second hand smoke exposure: No Alcohol intake: current Alcohol intake frequency: holidays/special occasions only Substance/Drug Use: current Substance/Drug use frequency: few times a week Adopted: No Caregiver/support person: No Lives independently: Yes Housing: House service: No Current occupational status: employed Current occupation: At home care Current occupational exposures/hazards: No Pets and animals: No Do you think of yourself as: Straight/Heterosexual Current gender identity: Male Special linsey needs: No Physical Exam 2 Const: COMMON NORMALS: no acute distress GENERAL APPEARANCE: cooperative and comfortable ORIENTATION/CONSCIOUSNESS: Yes awake, Yes oriented to person, Yes oriented to place and Yes oriented to time HENMT: COMMON NORMALS: normocephalic, atraumatic and hearing grossly normal bilaterally HEAD & SCALP: normocephalic and atraumatic OTHER: Slight swelling of the lower lip with a fissure at the midline. No induration minimally tender with palpation Resp: COMMON NORMALS: normal respiratory effort, No retractions, No use of accessory muscles and clear to auscultation bilaterally AUSCULTATION: clear to auscultation bilaterally Cardio: COMMON NORMALS: regular rate, regular rhythm and No murmurs present (Cardio) RATE: regular rate RHYTHM: regular rhythm GI: COMMON NORMALS: Soft to palpation and No hepatosplenomegaly present A USCULTATION: Yes normoactive bowel sounds PALPATION: Yes Soft to palpation, No Tenderness to palpation present (GI), No Guarding due to palpation present (GI) and Yes No hepatosplenomegaly present Extremity: COMMON NORMALS: normal to inspection, capillary refill normal, no clubbing, cyanosis or edema, no calf tenderness and no pedal edema Neuro: SENSORIUM/ORIENTATION: Yes oriented to person, Yes oriented to place and Yes oriented to time Skin: COMMON NORMALS: no rashes or lesions noted GENERAL SKIN EXAM: no rashes or lesions noted Course 2 Vital Signs: Vital signs: Vital Signs Temperature 98.4 F 04/06/25 09:16 Pulse Rate 68 04/06/25 12:19 Respiratory Rate 16 04/06/25 09:16 Blood Pressure 113/87 04/06/25 12:19 Pulse Oximetry 96 04/06/25 12:19 Oxygen Delivery Me thod Room Air 04/06/25 10:57 MDM - Chest Pain Medical Decision Making Labs and making EKG unremarkable. Discharge patient with pleuritic chest pain can use diclofenac. Follow-up as needed Medical Records I reviewed the patient's medical records. Lab Data I reviewed the patient's lab results. 04/06/25 09:31 04/06/25 09:31 Radiology Impressions Chest X-Ray 04/06/25 09:17 IMPRESSION: 1. Negative chest. Laboratory Results WBC 14.62 10^3/uL (3.29-11.43) H 04/06/25 09:31 RBC 5.38 10^6/uL (3.85-5.65) 04/06/25 09:31 Hgb 15.80 g/dL (11.27-16.99) 04/06/25 09:31 Hct 46.3 % (37-53) 04/06/25 09:31 MCV 86.1 fl (82-101) 04/06/25 09:31 MCH 29.4 pg (27-33) 04/06/25 09:31 MCHC 34.1 g/dL (30-55) 04/06/25 09:31 RDW 12.2 % (12.1-15.1) 04/06/25 09:31 Plt Count 298 10^3/cmm (157-399) 04/06/25 09:31 MPV 10.4 fL (7.4-10.4) 04/06/25 09:31 Neut % (Auto) 86.3 % 04/06/25 09:31 Lymph % (Auto) 8.5 % 04/06/25 09:31 Hart % (Auto) 4.7 % 04/06/25 09:31 Eos % (Auto) 0.0 % 04/06/25 09:31 Baso % (Auto) 0.2 % 04/06/25 09:31 Neut # (Auto) 12.60 10^3/uL (1.8-7.7) H 04/06/25 09:31 Lymph # (Auto) 1.3 10^3/uL (0.8-4.8) 04/06/25 09:31 Hart # (Auto) 0.7 10^3/uL (0.2-0.9) 04/06/25 09:31 Eos # (Auto) 0.0 10^3/uL (0.0-0.8) 04/06/25 09:31 Baso # (Auto) 0.0 10^3/uL (0.0-0.1) 04/06/25 09:31 Nucleated RBC % (auto) 0 % 04/06/25 09: Nucleated RBCs # 0.0 /100WBC 04/06/25 09:31 Sodium 136 mmol/L (136-145) 04/06/25 09:31 Potassium 4.4 mmol/L (3.5-5.1) 04/06/25 09: Chloride 101 mmol/L (98-107) 04/06/25 09: Carbon Dioxide 21 mmol/L (22-29) L 04/06/25 09:31 Anion Gap 18.4 (5-19) 04/06/25 09:31 BUN 8 mg/dL (6-20) 04/06/25 09:31 Creatinine 0.9 mg/dL (0.7-1.2) 04/06/25 09:31 GFR Calculation 121.6 mL/min (90-130) 04/06/25 09: Glucose 99 mg/dL (65-115) 04/06/25 09:31 Calculated Osmolality 280 mOsm/kg (285-295) L 04/06/25 09:31 Calcium 9.6 mg/dL (8.5-10.5) 04/06/25 09:31 Total Bilirubin 0.4 mg/dL (0.15-1.2) 04/06/25 09:31 AST 15 U/L (0-40) 04/06/25 09:31 ALT 32 U/L (0-41) 04/06/25 09:31 Alkaline Phosphatase 105 U/L (40-130) 04/06/25 09:31 Troponin T Baseline < 6 ng/L (0-15) 04/06/25 09:31 Troponin T 120 Minute < 6.0 ng/L (0-15) 04/06/25 11:31 Delta Troponin T 0 ABS# (0-10) 04/06/25 11:31 Total Protein 7.7 g/dL (6.6-8.7) 04/06/25 09:31 Albumin 4.6 g/dL (3.5-5.2) 04/06/25 09:31 Globulin 3.1 g/dL (1.3-4.6) 04/06/25 09:31 All radiology interpretation(s) finalized by discharge EKG Data EKG 1: Interpretation: EKG 04/06/2025 9:21 AM sinus rhythm early repull noted. Rate of 74 GA interval 127 QTc 392. No EKGs available for comparison EKG 2: Interpretation: EKG 04/06/2025 11:26 AM sinus rhythm early repull changes no acute ST elevation rate is 63. Normal 138 QTc 371 compared to EKG done earlier same date no significant changes noted Discharge Plan Discharge Patient Disposition: Home Clinical Impression: Pleuritic chest pain Condition: Stable Prescriptions: New diclofenac sodium 75 mg tablet,delayed release (DR/EC) 75 mg PO Q12H PRN (Reason: pain) Qty: 20 0RF No Action cetirizine [Zyrtec] 10 mg tablet 10 mg PO DAILY Qty: 90 1RF ondansetron HCl (PF) 4 mg/2 mL solution 4 mg IM ONCE Qty: 1 0RF sulfamethoxazole-trimethoprim 800-160 mg tablet 1 tab PO BID 10 Days Qty: 20 0RF Discharge Orders: Discharge ED (Routine); Ordered 04/06/25 Ordered By: Simba Downs Referrals: Ronny Alexander MD [Primary Care Provider, [facility]] Discharge Diet: Usual diet Discharge Activity: Resume usual activity Patient Instructions: Opioid Safety, Pain Management, Patient Portal & Roberth Instructions Activity Restrictions/Additional Instructions: Thank you for choosing [facility] for your healthcare needs today. It is very important that you follow up as instructed or that you return to the Emergency Department should you have concerns or if your condition changes or worsens in any way. Emergency department visits are focused on emergent conditions, in some cases you may require further evaluation on an outpatient basis. You were seen in the emergency [facility] your chest comfort EKG did not show any acute changes. Your laboratory test clued and cardiac enzymes were also normal chest x-ray was normal as well. Chest pain is pleuritic in nature. This is an inflammation of the lining of the lung and the inner aspect of the chest wall. Recommend start on diclofenac 1 tablet twice a day as needed. (Please note that included in your discharge packet is information concerning opioid safety and pain management. This information is given to all patients were discharged from the ER regardless of their discharge diagnosis or the medicines they usually take or are prescribed.) Print Language: Indonesian Coding Level of Care Code ED Exerciser Horse for Hilario Velasquez
[2025-04-06 09:38] LABS: Hematocrit 46.3 % (37-53); Hemoglobin 15.80 g/dL (11.27-16.99); Mean Corpuscular HGB Conc 34.1 g/dL (30-55); Mean Corpuscular Hemoglobin 29.4 pg (27-33); Mean Corpuscular Volume 86.1 fl (82-101); Nucleated Red Blood Cells % 0 %; Platelet Count 298 10^3/cmm (157-399); Red Blood Count 5.38 10^6/uL (3.85-5.65); White Blood Count 14.62 10^3/uL (3.29-11.43)
[2025-04-06 09:58] LABS: Alanine Aminotransferase 32 U/L (0-41); Albumin Level 4.6 g/dL (3.5-5.2); Alkaline Phosphatase 105 U/L (40-130); Anion Gap 18.4 (5-19); Aspartate Amino Transferase 15 U/L (0-40); Blood Urea Nitrogen 8 mg/dL (6-20); Calcium 9.6 mg/dL (8.5-10.5); Carbon Dioxide 21 mmol/L (22-29); Chloride 101 mmol/L (98-107); Creatinine Clr Calc Pharmacy 153.6654; Globulin 3.1 g/dL (1.3-4.6); Glucose 99 mg/dL (65-115); Osmolality Calculated 280 mOsm/kg (285-295); Potassium 4.4 mmol/L (3.5-5.1); Sodium 136 mmol/L (136-145); Total Protein 7.7 g/dL (6.6-8.7); Troponin(5th) Baseline < 6 ng/L (0-15)
[2025-04-06 10:57] VITALS: BP 108/73; PULSE 71; O2SAT 97
--- NOTE | 2025-04-06 11:17 | ECG_ITS ---
[employer] Test Date: 2025-04-06 Pat Name: Blaise Oneil Department: Room: Gender: Male Director Of Event Sales: : 1995 Requested By: Simba Alves Order Number: [id number] Pratik MD: Olya Talley M.D. Measurements Intervals [place] Rate: 63 P: 8 MO: 138 QRS: 64 QRSD: 91 T: 22 QT: 361 QTc: 371 Interpretive Statements SINUS RHYTHM WITH SINUS ARRHYTHMIA EARLY REPOLARIZATION [ST ELEVATION WITH NORMALLY INFLECTED T-WAVE] Compared to ECG 04/06/2025 09:21:36 ST (T wave) deviation no longer present Electronically Signed On 04-06-2025 20:27:28 CDT by Olya Talley M.D. [email or web address]
[2025-04-06 11:19] VITALS: BP 108/73; PULSE 65; O2SAT 97
[2025-04-06 11:39] VITALS: BP 114/78; PULSE 64; O2SAT 96
[2025-04-06 11:55] LABS: Troponin 5 2HR < 6.0 ng/L (0-15); Troponin 5 2HR Delta 0 ABS# (0-10)
[2025-04-06 12:03] VITALS: BP 113/87; PULSE 74; O2SAT 97
[2025-04-06 12:19] VITALS: BP 113/87; PULSE 68; O2SAT 96
== END 2025-04-06 12:21 | disposition home or self-care (01) ==
PROVIDERS: Emergency Provider Family Medicine; PCP Family Medicine
DX: R07.81 Pleurodynia (principal); F17.290 Nicotine dependence, other tobacco product, uncomplicated
CPT/HCPCS: 36415; 71045; 80053; 84484; 85025; 93005; 99285

== ENCOUNTER → 2025-04-21 17:35 | Outpatient (BNVA) | payer OTHER, SELFPAY | PROVIDERS: PCP Family Medicine; Visit Provider Emergency Medicine | DX: J02.9 Acute pharyngitis, unspecified (principal) | CPT/HCPCS: 87070; 87071; 87880 ==